=== PATIENT | male | born 1955 | race Caucasian/White ===

== ENCOUNTER → 2016-11-12 | Day surgery (SDC) | payer OTHER ==
[~2016-11-12] MED LIST: ALLEGRA-D1 TAB.SR1 PO; CELEXA20 MG PO; CLARITIN10 M2 PO; LEXAPRO PO; NASACORT AQ16.5 GM; RHINOCORT ALL8.43 ML
--- NOTE | ~2016-11-12 | OR ---
Unit #: [id number] #: [id number] Patient: MEGAN HOPKINS JR [id number] [address] [place], [place] [address] [id number] MR#: [id number] NAME: MEGAN HOPKINS JR ROOM: Date of Procedure: 11/12/2016 Admission Date: 11/12/2016 Surgeon: Obdulio Betancourt M.D. : 1955 Attending Physician: Obdulio Betancourt M.D. Primary Care Physician: Eladio Davidson Jr., M.D. OPERATIVE REPORT PREOPERATIVE DIAGNOSES Colorectal cancer screening. The patient has family history of polyps in his brother and mother. PROCEDURE PERFORMED Colonoscopy up to cecum with good prep and visualization. POSTOPERATIVE DIAGNOSES Mild sigmoid and descending colon diverticulosis, otherwise normal examination up to cecum. The quality of prep was good. No polyps were seen. The patient also did not have any hemorrhoids. RECOMMENDATIONS Repeat colonoscopy in 5 years. SEDATION USED MAC. DESCRIPTION OF PROCEDURE Following detailed explanation of potential risks and complications of a colonoscopy, namely perforation, bleeding, and complications related to sedation, the patient was brought to GI lab and laid in the left lateral decubitus position. A digital rectal examination was performed, which was normal. Lubricated tip of the Olympus video colonoscope was inserted through the anus and advanced under direct vision. The scope was advanced and passed up to sigmoid into descending colon. Multiple small diverticula were seen in this area. The scope tip was then navigated all the way up to cecum with visualization of the ileocecal valve and the appendiceal orifice. Preparation was excellent with good visualization and photodocumentation was obtained. Successive segments of the colonic mucosa were examined upon withdrawal and appeared unremarkable. There being no polyps, mass lesions, or AVMs. Other than the scant diverticula seen in the left side, no other abnormalities were found. The patient did not have any hemorrhoids at anal verge. The scope was then withdrawn. The patient returned to the recovery area. He tolerated the procedure without any postprocedure complications. Dictated by... Obdulio Betancourt M.D. Unit #: [id number] #: [id number] Patient: MEGAN HOPKINS JR TRINI/allen TD: 11/12/2016 11:57 JOB #: [id number] OPERATIVE REPORT Page 1 of 1 X Obdulio Betancourt MD PROCEDURE OPERATIVE NOTE
== END | disposition home or self-care (01) ==
LOC: COPS 06:04
DX: Z12.11 Encounter for screening for malignant neoplasm of colon (principal); K57.30 Diverticulosis of large intestine without perforation or abscess without bleeding; K21.9 Gastro-esophageal reflux disease without esophagitis; G47.30 Sleep apnea, unspecified; Z83.71 Family history of colonic polyps; Z79.899 Other long term (current) drug therapy; Z89.022 Acquired absence of left finger(s); Z98.890 Other specified postprocedural states
CPT/HCPCS: J2250